=== PATIENT | female | born 1965 | race Caucasian/White ===

== ENCOUNTER → 2024-06-04 07:00 | Outpatient (REF) | payer SELFPAY | LOC: CLAB 07:00 | PROVIDERS: ATTENDING PHYSICIAN Specialist | DX: Z41.1 Encounter for cosmetic surgery (principal) | CPT/HCPCS: 88112 ==

== ENCOUNTER → 2024-09-07 14:09 | Outpatient (REF) | payer BC, SELFPAY | LOC: HWRAD 14:09 | PROVIDERS: ATTENDING PHYSICIAN Advanced Practice Midwife; FAMILY PHYSICIAN Family Medicine | DX: R06.02 Shortness of breath (principal) | CPT/HCPCS: 71046 ==

== ENCOUNTER → 2024-12-03 09:26 | Outpatient (REF) | payer BC, SELFPAY | LOC: WDC 09:26 | PROVIDERS: ATTENDING PHYSICIAN Obstetrics & Gynecology | DX: N63.41 Unspecified lump in right breast, subareolar (principal) | CPT/HCPCS: 76642; 77062; 77066 ==